=== PATIENT | female | born 1960 | race Caucasian/White ===

== ENCOUNTER 2018-01-31 12:31 | Day surgery (SDC) | payer BC ==
[2018-01-31] MEDS ORDERED: PROPOFOL 60 ML (15:46)
[2018-01-31] MEDS ORDERED: LIDOCAINE 2% (SDV) 5 ML INJ (15:46)
[2018-01-31] MEDS ORDERED: OCULAR LUBRICANT 3.5 GM OPH OINT BOTH EYES (17:30)
[2018-01-31] MEDS ORDERED: ARTIFICIAL TEARS 15 ML OPH BOTH EYES (17:30)
== END 2018-01-31 17:11 | disposition home or self-care (01) ==
LOC: GIL 12:31
DX: K92.1 Melena (principal); D12.0 Benign neoplasm of cecum; E03.9 Hypothyroidism, unspecified; K25.9 Gastric ulcer, unspecified as acute or chronic, without hemorrhage or perforation
CPT/HCPCS: 43235; 88305